=== PATIENT | female | born 1940 | race Caucasian/White ===

== ENCOUNTER → 2017-08-08 | Outpatient (CLI) | payer MEDICARE, OTHER ==
[~2017-08-08] MED LIST: ALPR1 PO; AMLO5; ASPI81CH PO; ATOR10 PO; BETA.1TL TOP; LEVSOD75 PO; Lamictal200 MG PO; METO50; Multiple Vitam1 EAC1 PO; NAPR220; PROP120ER PO; QUET200 PO; Ramipril10 MG PO; Remeron45 MG PO
[2017-08-08 11:48] LABS: Bun/Creatinine Ratio 10.4 (12.0-20.0); Calcium, Blood 9.1 mg/dL (8.5-10.1); Creatinine, Blood 1.54 mg/dL (0.40-1.00); Potassium, Blood 3.9 mmol/L (3.5-5.5)
== END | disposition home or self-care (01) ==
LOC: LAB EV 11:30 → LAB SHORT 11:30
PROVIDERS: Physician Assistant Medical
DX: R34 Anuria and oliguria (principal)
CPT/HCPCS: 80048

== ENCOUNTER 2018-10-27 16:59 | Emergency (ER) | payer OTHER, MEDICARE ==
[~2018-10-27] VITALS: Ht 162.6 cm; Wt 62.1 kg
[~2018-10-27 16:59] MED LIST changes: -METO50; +METO50 PO
[2018-10-27] MEDS ORDERED: Pantoprazole So40 MG PO (17:28)
[2019-01-28] MEDS ORDERED: Flonase 0.05% N16 GM (14:29)
[2019-01-28] MEDS ORDERED: Prozac40 MG PO (14:30)
== END 2018-10-27 18:38 | disposition home or self-care (01) ==
LOC: ER 16:59
DX: S20.219A Contusion of unspecified front wall of thorax, initial encounter (principal); V49.9XXA Car occupant (driver) (passenger) injured in unspecified traffic accident, initial encounter; F41.9 Anxiety disorder, unspecified; E78.5 Hyperlipidemia, unspecified; K21.9 Gastro-esophageal reflux disease without esophagitis; Z79.899 Other long term (current) drug therapy
CPT/HCPCS: 71045; 93005; 93010; 99284-25

== ENCOUNTER 2018-11-06 11:43 | Emergency (ER) | payer MEDICARE, OTHER ==
[~2018-11-06] VITALS: Ht 165.1 cm; Wt 62.1 kg
[~2018-11-06 11:43] MED LIST changes: +Pantoprazole So40 MG PO
[2019-01-28] MEDS ORDERED: Flonase 0.05% N16 GM (14:29)
[2019-01-28] MEDS ORDERED: Prozac40 MG PO (14:30)
== END 2018-11-06 13:11 | disposition home or self-care (01) ==
LOC: ER 11:43
DX: S00.81XA Abrasion of other part of head, initial encounter (principal); S70.212A Abrasion, left hip, initial encounter; W18.30XA Fall on same level, unspecified, initial encounter; Z88.8 Allergy status to other drugs, medicaments and biological substances; Z79.899 Other long term (current) drug therapy; F41.9 Anxiety disorder, unspecified; E78.5 Hyperlipidemia, unspecified; K21.9 Gastro-esophageal reflux disease without esophagitis
CPT/HCPCS: 70450; 99284-25

== ENCOUNTER 2018-12-17 08:57 | Day surgery (SDC) | payer MEDICARE, OTHER ==
[~2018-12-17] VITALS: Ht 165.1 cm; Wt 60.9 kg
[2018-12-17] MEDS ORDERED: Prozac20 MG (09:27)
--- NOTE | 2018-12-17 10:28 | NUR ---
12/17/18 1028 Karley Montilla PT UPDATED ON DELAY OF HER START TIME DUE TO THE PREVIOUS CASE RUNNING LONGER THAN ANTICIPATED. CALL LIGHT IN REACH, BED IN LOW, LOCKED POSITION.
[2019-01-28] MEDS ORDERED: Flonase 0.05% N16 GM (14:29)
[2019-01-28] MEDS ORDERED: Prozac40 MG PO (14:30)
== END 2018-12-17 11:53 | disposition home or self-care (01) ==
LOC: ORSCSDS 08:57
PROVIDERS: Internal Medicine Gastroenterology
PROC: 0DB58ZX Excision of Esophagus, Via Natural or Artificial Opening Endoscopic, Diagnostic (ICD-10-PCS; principal; 2018-12-17 10:15)
PROC: 0D757ZZ Dilation of Esophagus, Via Natural or Artificial Opening (ICD-10-PCS; principal; 2018-12-17 10:15)
DX: K20.0 Eosinophilic esophagitis (principal); R13.14 Dysphagia, pharyngoesophageal phase; K22.2 Esophageal obstruction; I12.9 Hypertensive chronic kidney disease with stage 1 through stage 4 chronic kidney disease, or unspecified chronic kidney disease; N18.3 Chronic kidney disease, stage 3 (moderate); E03.9 Hypothyroidism, unspecified; E78.5 Hyperlipidemia, unspecified; Z79.899 Other long term (current) drug therapy
CPT/HCPCS: 88305; J2704; J7120

== ENCOUNTER → 2019-01-27 | Outpatient (CLI) | payer MEDICARE, OTHER ==
[~2019-01-27] MED LIST changes: +Flonase 0.05% N16 GM; +Prozac20 MG; +Prozac40 MG PO
== END | disposition home or self-care (01) ==
LOC: LAB SHORT 08:20 → PLD 08:20
DX: D22.5 Melanocytic nevi of trunk (principal); D22.61 Melanocytic nevi of right upper limb, including shoulder
CPT/HCPCS: 88305

== ENCOUNTER 2019-02-04 13:05 | Day surgery (SDC) | payer MEDICARE, OTHER ==
[~2019-02-04] VITALS: Ht 165.1 cm; Wt 59.2 kg
== END 2019-02-04 18:00 | disposition home or self-care (01) ==
LOC: ORSCSDS 13:05
PROVIDERS: Internal Medicine Gastroenterology
PROC: 0DBK8ZX Excision of Ascending Colon, Via Natural or Artificial Opening Endoscopic, Diagnostic (ICD-10-PCS; principal; 2019-02-04 14:15)
PROC: 0DBH8ZX Excision of Cecum, Via Natural or Artificial Opening Endoscopic, Diagnostic (ICD-10-PCS; principal; 2019-02-04 14:15)
PROC: 0DBL8ZX Excision of Transverse Colon, Via Natural or Artificial Opening Endoscopic, Diagnostic (ICD-10-PCS; principal; 2019-02-04 14:15)
DX: R19.4 Change in bowel habit (principal); D12.0 Benign neoplasm of cecum; D12.3 Benign neoplasm of transverse colon; D12.4 Benign neoplasm of descending colon; K57.30 Diverticulosis of large intestine without perforation or abscess without bleeding; K64.8 Other hemorrhoids; Z80.0 Family history of malignant neoplasm of digestive organs; N18.3 Chronic kidney disease, stage 3 (moderate); Z79.899 Other long term (current) drug therapy
CPT/HCPCS: 88305; J2704; J7120

== ENCOUNTER → 2020-09-09 | Outpatient (CLI) | payer MEDICARE, OTHER ==
[2020-09-10 21:49] LABS: Campylobacter Sp Not Detected (NOT DETECT)
[2020-09-10 21:50] LABS: Adenovirus F 40/41 Not Detected (NOT DETECT); Astrovirus Not Detected (NOT DETECT); Cryptosporidium Not Detected (NOT DETECT); Cyclospora Cayetanensis Not Detected (NOT DETECT); E. Coli O157 Not Detected (NOT DETECT); Entamoeba Histolytica Not Detected (NOT DETECT); Enteroaggregative E. coli-EAEC Not Detected (NOT DETECT); Enteropathogenic E. coli-EPEC Not Detected (NOT DETECT); Enterotoxigenic E. coli-ETEC Not Detected (NOT DETECT); Giardia Lamblia Not Detected (NOT DETECT); Norovirus GI/GII Not Detected (NOT DETECT); Plesiomonas Shigelloides Not Detected (NOT DETECT); Rotavirus A Not Detected (NOT DETECT); Salmonella Sp Not Detected (NOT DETECT); Sapovirus Not Detected (NOT DETECT); Shiga Toxin-prod E. coli-STEC Not Detected (NOT DETECT); Shigella/Enteroin E. coli-EIEC Not Detected (NOT DETECT); Vibrio Cholerae Not Detected (NOT DETECT); Vibrio Sp Not Detected (NOT DETECT); Yersinia Enterocolitica Not Detected (NOT DETECT)
[2020-09-11 12:29] LABS: Stool Occult Bld Immuno 1 Negative (NEGATIVE)
== END ==
LOC: LAB EV 06:30 → LAB SHORT 06:30
PROVIDERS: Family Medicine
DX: A06.1 Chronic intestinal amebiasis (principal); R19.7 Diarrhea, unspecified; Z88.8 Allergy status to other drugs, medicaments and biological substances; Z88.1 Allergy status to other antibiotic agents
CPT/HCPCS: 0097U; G0328

== ENCOUNTER → 2021-02-28 | Outpatient (CLI) | payer MEDICARE, OTHER | LOC: LAB 14:54 → LAB SHORT 14:54 | DX: D48.5 Neoplasm of uncertain behavior of skin (principal); L82.1 Other seborrheic keratosis; D22.5 Melanocytic nevi of trunk; Z88.8 Allergy status to other drugs, medicaments and biological substances | CPT/HCPCS: 88305 ==

== ENCOUNTER 2021-08-16 14:52 | Emergency (ER) | payer MEDICARE, OTHER ==
[~2021-08-16] VITALS: Ht 165.1 cm; Wt 69.4 kg
[~2021-08-16 14:52] MED LIST changes: +EUTHYROX88 MCG PO; -LEVSOD75 PO; +MIRT15 PO; -Remeron45 MG PO
[2021-08-16 15:25] LABS: BASOPHILS ABSOLUTE AUTO 0.07 K/mm3 (0.00-0.23); BASOPHILS PERCENT AUTO 1 % (0-2); EOSINOPHILS ABSOLUTE AUTO 0.32 K/mm3 (0.00-0.68); EOSINOPHILS PERCENT AUTO 5 % (0-6); Hematocrit 41.2 % (33.0-51.0); Hemoglobin 14.2 g/dL (11.5-16.0); IMMATURE GRAN ABSOLUTE AUTO 0.03 K/mm3 (0.00-0.10); IMMATURE GRAN PERCENT AUTO 0 % (0-1); LYMPHOCYTES ABSOLUTE AUTO 1.66 K/mm3 (0.84-5.20); LYMPHOCYTES PERCENT AUTO 24 % (21-46); MONOCYTES ABSOLUTE AUTO 0.73 K/mm3 (0.16-1.47); MONOCYTES PERCENT AUTO 10 % (4-13); Mean Corpuscular HGB 29.2 pg (26.0-34.0); Mean Corpuscular HGB Conc 34.5 g/dL (31.5-36.5); Mean Corpuscular Volume 85 fL (80-100); Mean Platelet Volume 10.1 fL (9.1-12.4); NEUTROPHILS ABSOLUTE AUTO 4.23 K/mm3 (1.96-9.15); NEUTROPHILS PERCENT AUTO 60 % (41-73); Platelet Count 308 K/mm3 (150-400); RDW Coefficient Variation 12.8 % (11.7-14.2); RDW Standard Deviation 39.2 fL (35.1-46.3); Red Blood Cell Count 4.87 M/mm3 (3.80-5.20); White Blood Cell Count 7.04 K/mm3 (4.00-11.30)
[2021-08-16 15:44] LABS: Albumin, Blood 3.8 g/dL (3.4-5.0); Albumin/Globulin Ratio 1.2 (0.8-1.8); Bilirubin, Total 0.8 mg/dL (0.1-1.0); Bun/Creatinine Ratio 19.8 (12.0-20.0); Calcium, Blood 8.9 mg/dL (8.5-10.1); Creatinine, Blood 1.01 mg/dL (0.40-1.00); Globulin, Blood 3.3 g/dL (2.2-4.0); Potassium, Blood 4.1 mmol/L (3.5-5.5); Total Protein, Blood 7.1 g/dL (6.4-8.2)
[2021-08-16 19:17] LABS: Source, Urine Clean Catch
[2021-08-16] MEDS ORDERED: AMLO5 PO (19:26)
[2021-08-16] MEDS ORDERED: FLUR15 PO (19:26)
[2021-08-16 19:27] LABS: Appearance, Urine Clear (Clear); Bilirubin, Urine Neg (Neg); Blood, Urine Neg (Neg); Color, Urine Yellow (P-Yellow); Glucose Qualitative, Urine Neg (Neg); Ketones, Urine Neg (Neg); Leukocyte Esterase, Urine 2+ (Neg); Nitrite, Urine Neg (Neg); Protein, Urine Neg (Neg); Urobilinogen, Urine NORM (Normal)
[2021-08-16 19:33] LABS: Bacteria Few /hpf; Red Blood Cells, Urine 0-2 /hpf (0-2); Squamous Epithelial Cells Few /hpf (Few)
[2021-08-16] MEDS ORDERED: NITR100CA PO (19:52)
== END 2021-08-16 20:12 | disposition home or self-care (01) ==
LOC: ER 14:52
PROVIDERS: Physician Assistant
DX: N39.0 Urinary tract infection, site not specified (principal); E78.5 Hyperlipidemia, unspecified; K21.9 Gastro-esophageal reflux disease without esophagitis; N18.30 Chronic kidney disease, stage 3 unspecified; Z88.8 Allergy status to other drugs, medicaments and biological substances; Z79.899 Other long term (current) drug therapy
CPT/HCPCS: 36415; 70450; 70551; 80053; 81001; 85025; 87086; 93005; 93010; 99285-25; A9270

== ENCOUNTER 2023-03-20 11:43 | Day surgery (SDC) | payer MEDICARE, OTHER ==
[~2023-03-20] VITALS: Ht 165.1 cm; Wt 61.1 kg
[~2023-03-20 11:43] MED LIST changes: +AMLO5 PO; +FLUR15 PO; +Inderal40 MG; +NITR100CA PO
[2023-03-20] MEDS ORDERED: ESCI20 PO (12:09)
[2023-03-20] MEDS ORDERED: GABA100 PO (12:10)
--- NOTE | 2023-03-20 12:16 | NUR ---
03/20/23 1216 Heath Campbell CALL LIGHT WITHIN REACH. TETRACAINE IN LEFT EYE AT 1210 AND PLEDGETT IN AT 1212
[2023-03-20 13:30] VITALS: BP 100/59
--- NOTE | 2023-03-20 13:47 | NUR ---
03/20/23 1347 Shawn Burgos IV REMOVED INTACT. SITE WNL.
== END 2023-03-20 13:42 | disposition home or self-care (01) ==
LOC: ORSCSDS 11:43
PROVIDERS: Student in an Organized Health Care Education/Training Program
PROC: 08RK3JZ Replacement of Left Lens with Synthetic Substitute, Percutaneous Approach (ICD-10-PCS; principal; 2023-03-20 13:00)
DX: H25.13 Age-related nuclear cataract, bilateral (principal); I12.9 Hypertensive chronic kidney disease with stage 1 through stage 4 chronic kidney disease, or unspecified chronic kidney disease; N18.9 Chronic kidney disease, unspecified; E78.5 Hyperlipidemia, unspecified; E03.9 Hypothyroidism, unspecified; Z79.899 Other long term (current) drug therapy
CPT/HCPCS: J2250; J3010; J7040; V2632

== ENCOUNTER 2024-05-05 09:41 | Day surgery (SDC) | payer MEDICARE, OTHER ==
[~2024-05-05] VITALS: Ht 165.1 cm; Wt 66.7 kg
[~2024-05-05 09:41] MED LIST changes: +CHOLP PO; +ESCI10 PO; -EUTHYROX88 MCG PO; +GABA100 PO; -Inderal40 MG; +Inderal40 MG PO; +LEVOTHYROXINE88 MC9 PO; +Lactated Ringer's 1,000 ML IV ONE; +OMEGA-3 FISH O1 EAC6 PO; +PRED PH-MOXI-BRO5 M1; +VITAMIN D31000 UNI1 PO; +[UNRECOGNIZED DRUG - OTHER]; +propofoL 50 ML IV ONE
[2024-05-05] MEDS ORDERED: PANT40 (10:30)
[2024-05-05] MEDS ORDERED: GABA300 (10:30)
[2024-05-05] MEDS ORDERED: GABA400 (10:30)
[2024-05-05] MEDS ORDERED: Lactated Ringer's 1,000 ML IV ONE (11:11)
[2024-05-05 12:43] VITALS: BP 111/61
== END 2024-05-05 13:15 | disposition home or self-care (01) ==
LOC: ORSCSDS 09:41
PROVIDERS: Internal Medicine Gastroenterology
PROC: 0DBE8ZX Excision of Large Intestine, Via Natural or Artificial Opening Endoscopic, Diagnostic (ICD-10-PCS; principal; 2024-05-05 11:15)
PROC: 0DBH8ZX Excision of Cecum, Via Natural or Artificial Opening Endoscopic, Diagnostic (ICD-10-PCS; principal; 2024-05-05 11:15)
DX: R19.7 Diarrhea, unspecified (principal); Z86.0100 Personal history of colon polyps, unspecified; D12.0 Benign neoplasm of cecum; K20.0 Eosinophilic esophagitis; K44.9 Diaphragmatic hernia without obstruction or gangrene; K22.2 Esophageal obstruction; E78.5 Hyperlipidemia, unspecified; F31.9 Bipolar disorder, unspecified; N25.81 Secondary hyperparathyroidism of renal origin; E03.9 Hypothyroidism, unspecified; G47.33 Obstructive sleep apnea (adult) (pediatric); I12.9 Hypertensive chronic kidney disease with stage 1 through stage 4 chronic kidney disease, or unspecified chronic kidney disease; N18.30 Chronic kidney disease, stage 3 unspecified; Z79.899 Other long term (current) drug therapy
CPT/HCPCS: 88305; J2704; J7120